=== PATIENT | female | born 1975 | race Two or more races ===

== ENCOUNTER 2023-05-07 18:17 | Emergency (ER) | payer OTHER ==
[~2023-05-07] VITALS: Ht 172.7 cm; Wt 88.9 kg
[2023-05-07] MEDS ORDERED: IBUP1TAB5 PO (23:57)
[2023-05-08] MEDS ORDERED: HYDROcodone-ACET 5/325MG TAB PO ONE
[2023-05-08] MEDS ORDERED: ONDANSETRON ODT 4 MG TAB PO ONE
[2023-05-08 00:19] VITALS: BP 119/89; PULSE 64; RESP 15; TEMP 97.4; O2SAT 97
== END 2023-05-08 00:49 | disposition home or self-care (01) ==
LOC: ER 18:17
DX: S83.92XA Sprain of unspecified site of left knee, initial encounter (principal); S00.03XA Contusion of scalp, initial encounter; I10 Essential (primary) hypertension; W18.39XA Other fall on same level, initial encounter; Y93.89 Activity, other specified; Y92.89 Other specified places as the place of occurrence of the external cause; Y99.8 Other external cause status
CPT/HCPCS: 29505; 70450; 73562